=== PATIENT | female | born 1945 | race Hispanic/Latino ===

== ENCOUNTER 2018-11-22 06:39 | Day surgery (SDC) | payer MEDICARE ==
[2018-11-22] MEDS ORDERED: ECOTRIN PO NR (07:00)
[2018-11-22 07:30] LABS: Basophils # (Auto) 0.1 K/mm3 (0.0-0.1); Basophils % (Auto) 1.4 % (0.0-1.8); Eosinophils # (Auto) 0.3 K/mm3 (0.0-0.4); Eosinophils % (Auto) 3.4 % (0.0-4.3); Hematocrit 43.3 % (30.3-42.9); Hemoglobin 14.7 gm/dl (10.1-14.3); Lymphocytes # (Auto) 2.1 K/mm3 (1.2-5.4); Lymphocytes % (Auto) 28.1 % (13.4-35.0); Mean Corpuscular HGB Conc 34 % (30-34); Mean Corpuscular Volume 94 fl (79-97); Monocytes # (Auto) 0.7 K/mm3 (0.0-0.8); Monocytes % (Auto) 9.1 % (0.0-7.3); Platelet Count 192 K/mm3 (140-440); Red Cell Distribution Width 13.7 % (13.2-15.2)
[2018-11-22] MEDS: NACL 0.9% 500 ML 500 ML IV SCH ×2 (07:40→08:50)
[2018-11-22 07:41] LABS: INR 0.99 (0.87-1.13); Partial Thromboplastin Time 23.8 Sec. (24.2-36.6)
[2018-11-22] MEDS ORDERED: HEPARIN/NS 5000 UNIT/500ML(CATH LAB) 1,000 ML IR ONE (08:18)
[2018-11-22] MEDS ORDERED: XYLOCAINE 2% INFILTRATI ONE ×2 (08:19→09:08)
[2018-11-22] MEDS ORDERED: CALAN ONE (08:19)
[2018-11-22 08:23] LABS: Calcium 8.6 mg/dL (8.4-10.2)
[2018-11-22] MEDS ORDERED: SUBLIMAZE ONE (08:51)
[2018-11-22] MEDS ORDERED: VERSED ONE (08:51)
[2018-11-22] MEDS: HEPARIN 10,000 UNITS/10 ML ONE ×2 (09:00→09:05)
[2018-11-22] MEDS: NITROGLYCERIN SYRINGE 3 ML ONE ×2 (09:01→09:05)
--- NOTE | 2018-11-22 11:15 | Short Stay Summary ---
Short Stay Documentation Date of service: 11/22/18 - History H&P: obtained from office - Allergies and Medications Current Medications: Allergies codeine Allergy (Verified 11/22/18 08:32) STOMACH SICKNESS, HALUNICATIONS Home Medications Medication Instructions Recorded Confirmed Last Taken Type AtorvaSTATin [Lipitor] 10 mg PO QHS 11/22/18 11/22/18 11/21/18 History Budesonide/Formoterol Fumarate 1 puff INHALATION BID 11/22/18 11/22/18 11/21/18 History [Symbicort 160-4.5 Mcg Inhaler] Cyclobenzaprine HCl [Flexeril 5 MG 5 mg PO TID 11/22/18 11/22/18 11/21/18 History TAB] FLUoxetine [PROzac] 20 mg PO QDAY 11/22/18 11/22/18 11/21/18 History Levothyroxine [Synthroid] 88 mcg PO QAM 11/22/18 11/22/18 11/21/18 History Losartan [Cozaar] 50 mg PO BID 11/22/18 11/22/18 11/21/18 History Ranitidine HCl [Zantac] 150 mg PO BID 11/22/18 11/22/18 11/21/18 History amLODIPine [Norvasc] 5 mg PO DAILY 11/22/18 11/22/18 11/21/18 History traZODone [Desyrel] 50 mg PO QHS 11/22/18 11/22/18 11/21/18 History Active Medications Sodium Chloride (Nacl 0.9% 500 Ml) 500 mls @ 50 mls/hr IV DIRECT TIFFANY Stop: 11/22/18 16:59 Last Admin: 11/22/18 08:50 Dose: 50 mls/hr Documented by: - Brief post op/procedure progress note Date of procedure: 11/22/18 Pre-op diagnosis: abnormal stress test Post-op diagnosis: other (nonobstructive CAD) Procedure: C - see dictated cath report Anesthesia: local Estimated blood loss: none Condition: stable - Disposition Condition at discharge: Good Disposition: [id number] TO HOME OR SELFCARE - Discharge Diagnoses (1) 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
--- NOTE | 2018-11-22 13:54 | Cardiac Catherization Report ---
CARDIAC CATHETERIZATION REFERRING PHYSICIAN: Esteban Sotomayor M.D. PRIMARY PHYSICIAN: Azar Emmanuel M.D. INDICATION FOR PROCEDURE: The patient is a pleasant 73-year-old female who was having some shortness of breath, is found to have an abnormal stress test, referred for left heart catheterization. Risks, benefits, alternatives explained at length prior to obtaining informed consent. PROCEDURE IN DETAIL: The patient was brought to catheterization lab in a post-absorptive state, prepped and draped in sterile fashion. Elmer's test in right hand was normal. A 2 mL of 2% lidocaine was used to anesthetize the right wrist. We attempted to gain access in the right wrist, but the pulse is very poor, unsuccessful. We changed to a groin approach, 6-Armenian sheath placed in the right common femoral artery via modified Seldinger technique. All exchanges performed to exchange a J-tip guidewire. JL3.5 catheter used to engage the left main. No dampening or ventricularization. Cineangiography performed in all projections. JR4 catheter was used to cross the aortic valve under fluoroscopic guidance. Left ventriculography was performed in 30 RICHARDSON and 30 KAZAKH projections via hand injection, catheter flushed. Manual pullback performed with continuous pressure monitoring. Catheter used to engage the right coronary. No dampening or ventricularization. Cineangiography performed in all projections. Catheter removed from the body of wire, sheath removed. Manual pressure used to achieve hemostasis. There were no immediate complications. I directly supervised the administration of moderate sedation from 8:56 a.m. to 9:30 a.m. with fentanyl and Versed. DATA: Aortic pressure is 110/50, LV pressure is 110. LVEDP of 15 mmHg. Left ventriculography reveals normal systolic performance with estimated ejection fraction of 55-60%. No evidence of aortic stenosis. CORONARY ANATOMY: This is a right dominant system. Right coronary is a moderate to large vessel courses AV groove, distally bifurcates in the posterior and posterolateral branches. There are scattered luminal irregularities, but no discrete stenoses identified. AGNIESZKA 3 flow. Left main without significant disease, bifurcates left anterior descending and left circumflex. Left circumflex is a moderate sized vessel courses the AV groove, large OM trunk, diminutive to AV groove circ and scattered luminal irregularities, but no significant disease. LAD is a moderate sized vessel courses anterior intergroove, wraps around the apex. The LAD has a normal tapering, rather small vessel 30-40% stenosis in the mid segment, but the rest of the vessel is quite small. Medical management. No obstructive disease identified. CONCLUSIONS: 1. [id number] nonobstructive disease including 30-40% mid LAD and a very small vessel throughout with tapering in the distal LAD, recommend medical management. 2. Normal left ventricular systolic performance, estimated ejection fraction of 55-60%. 3. No evidence of aortic stenosis. 4. Normal LVEDP. Standard radial care. Results of the procedure were explained at length to patient and family, primary and secondary prevention measures. Continue remainder of cardio workup. Follow up with me in the office. Results of procedure were explained to the patient and family. All questions and concerns were addressed. JOB# [id number] JAIMIE/CHRISTINE
[2018-11-22 14:52] VITALS: BP 105/55
== END 2018-11-22 14:30 | disposition home or self-care (01) ==
LOC: CATHLABREC 06:39
PROVIDERS: ATTEND Internal Medicine
DX: I25.10 Atherosclerotic heart disease of native coronary artery without angina pectoris (principal); I10 Essential (primary) hypertension; E11.9 Type 2 diabetes mellitus without complications; I42.9 Cardiomyopathy, unspecified; E78.00 Pure hypercholesterolemia, unspecified; J44.9 Chronic obstructive pulmonary disease, unspecified; K21.9 Gastro-esophageal reflux disease without esophagitis; M19.90 Unspecified osteoarthritis, unspecified site; E03.9 Hypothyroidism, unspecified; F32.9 Major depressive disorder, single episode, unspecified; Z85.89 Personal history of malignant neoplasm of other organs and systems; Z98.890 Other specified postprocedural states; Z88.5 Allergy status to narcotic agent; Z79.899 Other long term (current) drug therapy; Z87.891 Personal history of nicotine dependence; Z98.49 Cataract extraction status, unspecified eye; Z90.49 Acquired absence of other specified parts of digestive tract; Z87.440 Personal history of urinary (tract) infections
CPT/HCPCS: 36415; 80048; 85025; 85610; 85730; 93005; 93010; 93458; 99156; 99157; C1894; J1644; J2250; J3010; J7040; Q9967